=== PATIENT | male | born 1960 | race Caucasian/White ===

== ENCOUNTER 2018-10-02 08:11 | Day surgery (SDC) | payer BC, OTHER ==
[2018-10-02] MEDS ORDERED: PROPOFOL 20 ML ONE ×2 (08:17)
[2018-10-02 08:44] VITALS: BMI 27.7
[2018-10-02 09:42] VITALS: TEMP 98
[2018-10-02 10:22] VITALS: BP 103/67; PULSE 63
--- NOTE | 2018-10-06 15:11 | PATH ---
Surgical Pathology Report Patient Name: ZIGGY HALL [facility]. Rec. #: [id number] /Age/Gender: 1960 (Age: 58) / M Account: [id number] [facility] Taken: 10/02/2018 Received: 10/02/2018 Reported: 10/06/2018 Physicians: Eliezer Esparza M.D. Specimen(s) Received LEFT COLON Clinical History Polyp Final Diagnosis LEFT COLON, BIOPSY: HYPERPLASTIC POLYP. Electronically Signed Laura Suárez M.D. Gross Description Received in formalin, labeled "left colon" is one piece of dominguez tissue measuring 0.5 cm in greatest dimension. Entirely submitted one cassette. AE/10/06/2018 ebram/10/06/2018
== END 2018-10-02 10:20 | disposition home or self-care (01) ==
LOC: FASU-ENDO 08:11
PROVIDERS: ATTEND Internal Medicine Gastroenterology
PROC: 0DBM8ZX Excision of Descending Colon, Via Natural or Artificial Opening Endoscopic, Diagnostic (ICD-10-PCS; principal; 2018-10-02 09:06)
DX: Z86.010 Personal history of colon polyps (principal); Z83.71 Family history of colonic polyps; K63.5 Polyp of colon; K57.30 Diverticulosis of large intestine without perforation or abscess without bleeding
CPT/HCPCS: 88305-TC

== ENCOUNTER 2024-04-30 07:24 | Day surgery (SDC) | payer BC, OTHER ==
[2024-04-28 10:21] VITALS: BMI 30.2
[2024-04-30] MEDS ORDERED: PROPOFOL 100 ML ONE (07:31)
[2024-04-30 09:04] VITALS: PULSE 67; RESP 16; TEMP 97.5
[2024-04-30 09:25] VITALS: BP 123/85
== END 2024-04-30 09:50 | disposition home or self-care (01) ==
LOC: FASU-ENDO 07:24
PROVIDERS: ATTEND Internal Medicine Gastroenterology
PROC: 0DBN8ZX Excision of Sigmoid Colon, Via Natural or Artificial Opening Endoscopic, Diagnostic (ICD-10-PCS; principal; 2024-04-30 08:30)
DX: Z12.11 Encounter for screening for malignant neoplasm of colon (principal); D12.5 Benign neoplasm of sigmoid colon; K57.30 Diverticulosis of large intestine without perforation or abscess without bleeding; Z86.010 Personal history of colon polyps
CPT/HCPCS: 88305-TC